=== PATIENT | female | born 1975 | race Caucasian/White ===

== ENCOUNTER 2021-10-09 07:33 | Outpatient (CLI) | payer OTHER, SELFPAY ==
--- NOTE | 2021-10-09 | ECHO_ITS ---
Patient Info Name: Norma Faria Age: 46 years : 1975 Gender: Female Ht: 65 in Wt: 120 lbs BSA: 1.58 m2 HR: 73 bpm BP: 112 / 76 mmHg Heart Rhythm: Sinus Rhythm Exam Date: 10/09/2021 8:19 AM Exam Location: [facility] Pulmonary Patient Status: Outpatient Admit Date: 10/09/2021 Staff Ordering Physician: RanjitErnestina MD [employer] Barge: Pierce [place], MARK, RT Attending Provider: Aretha, Ernestina Reynolds MD Referring Physician: Ranjit HORNE; Exam Type: CA echo doppler color flow Study Info Indications R07.9 - Chest pain, unspecified Complete two-dimensional, color flow and Doppler transthoracic echocardiogram is performed. Strain analysis performed. Summary 1. Complete two-dimensional, color flow and Doppler transthoracic echocardiogram is performed. 2. Unable to estimate PA systolic pressure due to poor spectral resolution of tricuspid regurgitant jet velocity. 3. Left ventricular chamber dimension is normal. 4. Left ventricular systolic function is normal, estimated at 55-60%. 5. There is no increased left ventricular wall thickness. 6. The left ventricular diastolic function is normal. 7. Global longitudinal strain is normal at -20 %. 8. There is mildly increased echogenicity of the pericardium. Clinical correlation advised. 9. There is trivial pericardial effusion. Left Ventricle Left ventricular chamber dimension is normal. Left ventricular systolic function is normal, estimated at 55-60%. There is no increased left ventricular wall thickness. The left ventricular diastolic function is normal. Global longitudinal strain is normal at -20 %. Right Ventricle Right ventricular chamber dimension is normal. Right ventricular systolic function is normal. Left Atria Left atrial chamber dimension is normal. Right Atria Right atrial chamber dimension is normal. Aortic Valve The aortic valve is not well visualized. There is no aortic valve stenosis. There is no aortic valve regurgitation. Pulmonic Valve The pulmonic valve is not well visualized. Mitral Valve The mitral valve has normal leaflets. There is trace mitral valve regurgitation. Tricuspid Valve Unable to estimate PA systolic pressure due to poor spectral resolution of tricuspid regurgitant jet velocity. The tricuspid valve leaflets are normal. There is trace tricuspid valve regurgitation. Pericardium/Pleural There is mildly increased echogenicity of the pericardium. Clinical correlation advised. There is trivial pericardial effusion. Inferior Vena Cava Normal inferior vena cava with <50% collapse upon inspiration consistent with normal right atrial pressure, 5 mmHg. Aorta The aortic root size at the sinus of Valsalva is normal. Left Ventricular Outflow Tract Name Value Normal LVOT 2D LVOT Diameter 2.0 cm LVOT Doppler LVOT Peak Gradient 3 mmHg LVOT Mean Gradient 1 mmHg LVOT VTI 15 cm LVOT VTI/AV VTI Ratio 0.6 LVOT Stroke Volume 45 ml
--- NOTE | 2021-10-09 | EST_ITS ---
Patient Info Name: Norma Faria Age: 46 years : 1975 Gender: Female Ht: 64 in Wt: 120 lbs BSA: 1.57 m2 HR: 66 bpm BP: 122 / 66 mmHg Heart Rhythm: Sinus Rhythm Exam Date: 10/09/2021 9:07 AM Exam Location: [facility] Stress Patient Status: Outpatient Admit Date: 10/09/2021 Staff Ordering Physician: Ranjit, Ernestina Reynolds MD Attending Provider: ArethaErnestina MD Exercise Technologist: Joselyn Trujillo CT Exercise Physician: Rob Noble MD Exam Type: CA stress test treadmill Study Info Indications R07.9 - Chest pain, unspecified An exercise stress test was performed. Summary 1. Non-diagnostic ECG changes which did not meet strict criteria for reversible ischemia. 2. No arrhythmias were observed during the examination. 3. No chest discomfort with stress test. 4. Normal blood pressure response. 5. Excellent exercise capacity exercising 13 minutes and 1 second on Ravi Protocol achieving 13.9 METS. 6. Marshall Treadmill Score of +13 indicating patient at low risk for adverse cardiovascular events over the next 5 years. Protocol: Ravi Stress ECG Details Stage: REST Duration (min): 1 min : 56 sec Speed (mph): 0.0 Grade (%): 0 HR (bpm): 70 SBP (mmHg): 122 DBP (mmHg): 68 METS: --- Stage: REST Duration (min): 12 min : 10 sec Speed (mph): 0.0 Grade (%): 0 HR (bpm): 79 SBP (mmHg): 122 DBP (mmHg): 68 METS: --- Stage: STAGE 1 Duration (min): 1 min : 0 sec Speed (mph): 1.7 Grade (%): 10 HR (bpm): 107 SBP (mmHg): 122 DBP (mmHg): 68 METS: --- Stage: STAGE 1 Duration (min): 2 min : 0 sec Speed (mph): 1.7 Grade (%): 10 HR (bpm): 112 SBP (mmHg): 122 DBP (mmHg): 68 METS: --- Stage: STAGE 1 Duration (min): 3 min : 0 sec Speed (mph): 1.7 Grade (%): 10 HR (bpm): 115 SBP (mmHg): 140 DBP (mmHg): 67 METS: --- Stage: STAGE 2 Duration (min): 1 min : 0 sec Speed (mph): 2.5 Grade (%): 12 HR (bpm): 133 SBP (mmHg): 140 DBP (mmHg): 67 METS: --- Stage: STAGE 2 Duration (min): 2 min : 0 sec Speed (mph): 2.5 Grade (%): 12 HR (bpm): 141 SBP (mmHg): 146 DBP (mmHg): 67 METS: --- Stage: STAGE 2 Duration (min): 3 min : 0 sec Speed (mph): 2.5 Grade (%): 12 HR (bpm): 150 SBP (mmHg): 146 DBP (mmHg): 67 METS: --- Stage: STAGE 3 Duration (min): 1 min : 0 sec Speed (mph): 3.4 Grade (%): 14 HR (bpm): 152 SBP (mmHg): 151 DBP (mmHg): 67 METS: --- Stage: STAGE 3 Duration (min): 2 min : 0 sec Speed (mph): 3.4 Grade (%): 14 HR (bpm): 155 SBP (mmHg): 151 DBP (mmHg): 67 METS: --- Stage: STAGE 3 Duration (min): 3 min : 0 sec Speed (mph): 3.4 Grade (%): 14 HR (bpm): 162 SBP (mmHg): 155 DBP (mmHg): 66 METS: --- Stage: STAGE 4 Duration (min): 1 min : 0 sec Speed (mph): 4.2 Gr
--- NOTE | 2021-10-09 | ECG_ITS ---
Measurements Intervals Paul Rate: 68 P: 24 OR: 126 QRS: 76 QRSD: 80 T: 58 QT: 393 QTc: 421 Interpretive Statements SINUS RHYTHM LOW QRS VOLTAGE IN PRECORDIAL LEADS BASELINE ARTIFACT- II, III, AVF BORDERLINE ECG Electronically Signed On 10-09-2021 10:19:39 TALENT ACQUISITION CONSULTANT by Riley Dunham D.O.
== END 2021-10-09 07:34 | disposition home or self-care (01) ==
PROVIDERS: PCP Internal Medicine; Visit Provider Internal Medicine
DX: R07.2 Precordial pain (principal)
CPT/HCPCS: 93005; 93017; 93306

== ENCOUNTER 2024-08-02 14:17 | Outpatient (CLI) | payer OTHER, SELFPAY ==
--- NOTE | ~2024-08-02 | MR_ITS ---
MRI of the brain Clinical History: Dizziness Technique: Axial and sagittal T1-weighted images were acquired. These were followed by axial T2-weigh kylah, diffusion weighted, gradient, and FLAIR images. Following intravenous administration of 11 cc Mu ltiHance gadolinium, T1-weighted fat-sat imaging was performed in the axial and coronal planes. Findings: There is no abnormal signal in the brain parenchyma. No acute infarct, intracranial hemorrh age, or mass lesion identified. Ventricles and subarachnoid spaces are unremarkable. Orbits are unremarkable. Paranasal sinuses and m astoid air cells are clear. Major intracranial flow voids appear intact. Sagittal midline structures are intact. No abnormal postcontrast enhancement identified. IMPRESSION: Normal exam. Reviewed, dictated and finalized at location . RING MANAGER IMPRESSION: Normal exam.
== END 2024-08-02 14:18 | disposition home or self-care (01) ==
PROVIDERS: PCP Registered Nurse; Visit Provider Registered Nurse
DX: R42 Dizziness and giddiness (principal)
CPT/HCPCS: 70553; A9577

== ENCOUNTER 2025-02-13 13:23 | Outpatient (CLI) | payer OTHER, SELFPAY ==
--- NOTE | ~2025-02-13 | US_ITS ---
EXAM: Focused ultrasound examination of the soft tissues of the right neck HISTORY: enlarged lymph node in neck TECHNIQUE: Sonographic evaluation of the soft tissues of the right neck were performed assessing coley scale appearance and color Doppler flow. COMPARISON: None. FINDINGS: Morphologically benign nonpathologically enlarged lymph nodes are identified within the area of palpa ble concern. The largest lymph node measures 8.4 mm in short axis dimension for which no further follow-up is need ed. Sonographic evaluation of the remainder of the soft tissues of the right neck demonstrate benign fibr ofatty and fibromuscular elements without a cystic or solid lesion of concern. IMPRESSION: Morphologically benign nonpathologically enlarged lymph nodes within the area of palpable concern for which no further follow-up is needed. Reviewed, dictated and finalized at location A. IMPRESSION: Morphologically benign nonpathologically enlarged lymph nodes within the area o f palpable concern for which no further follow-up is needed.
== END 2025-02-13 13:24 | disposition home or self-care (01) ==
LOC: MICIMG 13:23
PROVIDERS: PCP Registered Nurse; Visit Provider Registered Nurse
DX: R59.0 Localized enlarged lymph nodes (principal)
CPT/HCPCS: 76536